=== PATIENT | female | born 1950 | race Caucasian/White ===

== ENCOUNTER 2016-09-07 09:11 | Day surgery (SDC) | payer OTHER ==
[~2016-09-07] VITALS: Ht 160 cm; Wt 75.7 kg
[2016-09-07 10:14] VITALS: Ht 160 cm; Wt 75.7 kg
[2016-09-07] MEDS ORDERED: PRAV20TA2 PO (10:21)
[2016-09-07] MEDS ORDERED: LISI2.5T59 PO (10:21)
[2016-09-07] MEDS ORDERED: METF500T4 PO (10:21)
[2016-09-07 10:42] VITALS: BP 132/60; PULSE 77; RESP 18
[2016-09-07] MEDS ORDERED: MIDAZOLAM 1 MG/ML 2 ML INJ ONE ×2 (11:24)
[2016-09-07] MEDS ORDERED: FENTAnyl 50 MCG/ML VIAL ONE (11:24)
--- NOTE | 2016-09-07 11:30 | GILP ---
DATE OF PROCEDURE: NAME OF PROCEDURE: Colonoscopy. SURGEON: Paula Chacon MD PREOPERATIVE DIAGNOSIS: Screening colonoscopy. POSTOPERATIVE DIAGNOSES 1. Colonoscopy all the way to the cecum. 2. Diverticulosis of the colon. 3. Internal hemorrhoids. 4. No colon neoplasm was identified. INDICATION FOR THE PROCEDURE: Ms. Mary Mace is a 65-year-old female patient who was scheduled fo r screening colonoscopy. The procedure and possible complications are well explained to the patient. The patient understood and consented to the procedure. DESCRIPTION OF PROCEDURE: Under the influence of fentanyl and Versed, the colonoscope was carefully introduced in the rectum and under direct vision, it was advanced all the way to the cecum. FINDINGS: The patient had diverticulosis of the colon. She also had internal hemorrhoids. No colo n neoplasm was identified. She tolerated the procedure very well and there was no complication from the procedure. At the end of the procedure, she was awake with stable vital signs and she was discharged home to the care of h er family. IMPRESSION: 1. Colonoscopy all the way to the cecum. 2. Diverticulosis of the colon. 3. Internal hemorrhoids. 4. No colon neoplasm was identified. PLAN: Screening colonoscopy in 10 years. Dictated By: PAULA RICHARD/SAMIRA Conf#: [id number] DID#: [id number]
[2016-09-07 11:50] VITALS: BP 98/58; PULSE 69; RESP 19
== END 2016-09-07 16:36 | disposition home or self-care (01) ==
LOC: GIL 09:11
PROVIDERS: ATTEND Internal Medicine Gastroenterology
DX: Z12.11 Encounter for screening for malignant neoplasm of colon (principal); K57.90 Diverticulosis of intestine, part unspecified, without perforation or abscess without bleeding; K64.8 Other hemorrhoids; E11.9 Type 2 diabetes mellitus without complications; I10 Essential (primary) hypertension
CPT/HCPCS: 45378; J2250; J3010; Z7610